=== PATIENT | male | born 1980 | race Asian ===

== ENCOUNTER 2016-10-23 09:37 | Emergency (ER) | payer OTHER ==
[~2016-10-23] VITALS: Ht 175.3 cm; Wt 93.0 kg
[2016-10-23 10:35] VITALS: BP 146/76; TEMP 98
== END 2016-10-23 12:00 | disposition home or self-care (01) ==
LOC: ED 09:37
DX: H10.89 Other conjunctivitis (principal); B99.9 Unspecified infectious disease
CPT/HCPCS: 99282